=== PATIENT | female | born 1960 | race Caucasian/White ===

== ENCOUNTER → 2017-05-15 | Outpatient (CLI) | payer BC ==
[~2017-05-15] MED LIST: ASPIRIN81 M1 PO; LETROZOLE2.5 M2 PO; MULTIPLE VITAMI1 T25 PO; TAMOXIFEN CITRA20 MG PO
== END | disposition home or self-care (01) ==
LOC: MAMMO 01:43
DX: C50.412 Malignant neoplasm of upper-outer quadrant of left female breast (principal); N63.11 Unspecified lump in the right breast, upper outer quadrant

== ENCOUNTER → 2018-03-11 | Outpatient (CLI) | payer BC ==
[2018-03-11 07:48] LABS: FREE T4 0.75 ng/dl (0.76-1.46)
[2018-03-11 07:54] LABS: THYROID STIM HORMONE (HS) 2.35 uIU/ml (0.358-4.75)
== END | disposition home or self-care (01) ==
LOC: LAB 02:12 → RAD 11:00
PROVIDERS: Internal Medicine
DX: Z00.01 Encounter for general adult medical examination with abnormal findings (principal); Z13.820 Encounter for screening for osteoporosis; M85.80 Other specified disorders of bone density and structure, unspecified site; E78.2 Mixed hyperlipidemia; E55.9 Vitamin D deficiency, unspecified; E03.9 Hypothyroidism, unspecified; Z78.0 Asymptomatic menopausal state

== ENCOUNTER → 2018-05-14 | Outpatient (CLI) | payer BC | END | disposition home or self-care (01) | LOC: MAMMO 02:59 | DX: R21 Rash and other nonspecific skin eruption (principal); Z85.3 Personal history of malignant neoplasm of breast ==

== ENCOUNTER → 2020-04-08 | Outpatient (CLI) | payer BC ==
[2020-04-08 07:44] LABS: BASO # 0.1 10*3/uL (0.0-0.1); BASO % 1.1 % (0.0-1.0); EOS # 0.2 10*3/uL (0.0-0.4); EOS % 3.2 % (1.0-4.0); LYMPH # 1.5 10*3/uL (1.3-4.4); MEAN CELL VOLUME 83.7 fl (81.0-99.0); MEAN CORPUSCULAR HGB 26.5 pg (27.0-31.0); MEAN CORPUSCULAR HGB CONC 31.6 g/dl (33.0-37.0); MEAN PLATELET VOLUME 10.2 fl (9.6-12.3); MONO # 0.3 10*3/uL (0.1-1.0); MONO % 7.3 % (3.0-9.0); NEUT # 2.6 10*3/uL (2.3-7.9); NEUT % 55.2 % (47.0-73.0); PLATELET COUNT AUTOMATED 292 10*3/uL (130-400); RED BLOOD COUNT 5.14 10*6/uL (4.10-5.10); RED CELL DISTRI WIDTH 12.6 % (0-14.5); WHITE BLOOD COUNT 4.6 10*3/uL (4.8-10.8)
[2020-04-08 08:09] LABS: ALBUMIN 3.7 gm/dl (3.1-4.5); ALKALINE PHOSPHATASE 100 U/L (45-117); BUN 14 mg/dl (7-24); CHLORIDE 110 mmol/L (98-107); CHOLESTEROL 160 mg/dL (<200); CREATININE 0.88 mg/dL (0.55-1.02); HDL CHOLESTEROL 93 mg/dl (40-60); LDL CHOLESTEROL 55 mg/dL (9-159); POTASSIUM 4.4 mmol/L (3.5-5.1); SGOT/AST 13 IU/L (3-35); SGPT/ALT 20 U/L (12-78); SODIUM 144 mmol/L (136-145); T3 UPTAKE 33 % (31-39); THYROXINE (T4) TOTAL 6.8 ug/dl (4.8-13.9); TOTAL PROTEIN 7.5 gm/dL (6.4-8.2); TRIGLYCERIDES 62 mg/dl (<150); VLDL CHOLESTEROL 12 mg/dL (6-40)
== END | disposition home or self-care (01) ==
LOC: LAB 06:46
PROVIDERS: ATTEND Internal Medicine
DX: I10 Essential (primary) hypertension (principal); Z85.3 Personal history of malignant neoplasm of breast

== ENCOUNTER → 2021-06-23 | Outpatient (CLI) | payer BC | END | disposition home or self-care (01) | LOC: MAMMO 00:14 | PROVIDERS: ATTEND Internal Medicine | DX: Z12.31 Encounter for screening mammogram for malignant neoplasm of breast (principal); N64.89 Other specified disorders of breast ==

== ENCOUNTER → 2021-08-25 | Outpatient (CLI) | payer BC ==
[2021-08-25 09:07] LABS: BASO % 0.8 % (0.0-1.0); EOS # 0.2 10*3/uL (0.0-0.4); EOS % 3.6 % (1.0-4.0); HEMATOCRIT 42.7 % (37.0-47.0); LYMPH # 1.8 10*3/uL (1.3-4.4); LYMPH % 33.6 % (27.0-41.0); MEAN CORPUSCULAR HGB 26.4 pg (27.0-31.0); MEAN CORPUSCULAR HGB CONC 32.6 g/dl (33.0-37.0); MEAN PLATELET VOLUME 10.1 fl (9.6-12.3); MONO # 0.4 10*3/uL (0.1-1.0); MONO % 7.7 % (3.0-9.0); NEUT # 2.8 10*3/uL (2.3-7.9); NEUT % 54.1 % (47.0-73.0); PLATELET COUNT AUTOMATED 300 10*3/uL (130-400); RED BLOOD COUNT 5.27 10*6/uL (4.10-5.10); RED CELL DISTRI WIDTH 12.7 % (0-14.5); WHITE BLOOD COUNT 5.2 10*3/uL (4.8-10.8)
[2021-08-25 09:22] LABS: BUN 11 mg/dl (7-24); CHLORIDE 111 mmol/L (98-107); CHOLESTEROL 186 mg/dL (<200); CREATININE 0.78 mg/dL (0.55-1.02); SGOT/AST 11 IU/L (3-35); SGPT/ALT 24 U/L (12-78); SODIUM 140 mmol/L (136-145); TRIGLYCERIDES 121 mg/dl (<150)
[2021-08-25 09:30] LABS: ALKALINE PHOSPHATASE 89 U/L (45-117); FREE T4 0.84 ng/dl (0.76-1.46); LDL CHOLESTEROL 86 mg/dL (9-159); TOTAL PROTEIN 7.6 gm/dL (6.4-8.2)
[2021-08-25 10:19] LABS: VITAMIN D, 25-HYDROXY 60.3 ng/mL (30-100)
== END | disposition home or self-care (01) ==
LOC: LAB 02:21
PROVIDERS: ATTEND Internal Medicine
DX: Z13.21 Encounter for screening for nutritional disorder (principal); Z13.220 Encounter for screening for lipoid disorders; Z00.00 Encounter for general adult medical examination without abnormal findings; Z85.3 Personal history of malignant neoplasm of breast; I10 Essential (primary) hypertension; E55.9 Vitamin D deficiency, unspecified; Z13.1 Encounter for screening for diabetes mellitus

== ENCOUNTER → 2021-10-27 | Outpatient (CLI) | payer BC | END | disposition home or self-care (01) | LOC: RAD 10-20 14:00 | PROVIDERS: ATTEND Internal Medicine | DX: M85.88 Other specified disorders of bone density and structure, other site (principal); N95.9 Unspecified menopausal and perimenopausal disorder ==

== ENCOUNTER → 2022-08-22 | Outpatient (CLI) | payer BC | END | disposition home or self-care (01) | LOC: MAMMO 00:05 | PROVIDERS: ATTEND Internal Medicine | DX: Z12.31 Encounter for screening mammogram for malignant neoplasm of breast (principal); N63.10 Unspecified lump in the right breast, unspecified quadrant ==

== ENCOUNTER → 2023-09-06 | Outpatient (CLI) | payer BC ==
[2023-09-06 07:12] LABS: BASO % 0.7 % (0.0-1.0); EOS # 0.2 10*3/uL (0.0-0.4); EOS % 3.6 % (1.0-4.0); HEMATOCRIT 44.4 % (37.0-47.0); LYMPH % 34.2 % (27.0-41.0); MEAN CELL VOLUME 82.4 fl (81.0-99.0); MEAN CORPUSCULAR HGB 26.7 pg (27.0-31.0); MEAN CORPUSCULAR HGB CONC 32.4 g/dl (33.0-37.0); MEAN PLATELET VOLUME 9.8 fl (9.6-12.3); MONO # 0.4 10*3/uL (0.1-1.0); MONO % 7.1 % (3.0-9.0); NEUT # 3.1 10*3/uL (2.3-7.9); NEUT % 54.2 % (47.0-73.0); PLATELET COUNT AUTOMATED 298 10*3/uL (130-400); RED BLOOD COUNT 5.39 10*6/uL (4.10-5.10); RED CELL DISTRI WIDTH 12.5 % (0-14.5); WHITE BLOOD COUNT 5.8 10*3/uL (4.8-10.8)
[2023-09-06 07:56] LABS: ALKALINE PHOSPHATASE 69 U/L (46-116); BUN 14 mg/dl (9-23); CHLORIDE 108 mmol/L (98-107); CHOLESTEROL 174 mg/dL (<200); FREE T4 1.03 ng/dl (0.89-1.76); LDL CHOLESTEROL 77 mg/dL (9-159); POTASSIUM 4.2 mmol/L (3.4-5.1); SGPT/ALT 12 U/L (5-49); TOTAL PROTEIN 7.5 gm/dL (6.0-8.0); TRIGLYCERIDES 127 mg/dl (<150)
[2023-09-06 09:27] LABS: VITAMIN D, 25-HYDROXY 55.9 ng/mL (30-100)
== END | disposition home or self-care (01) ==
LOC: LAB 02:04
PROVIDERS: ATTEND Internal Medicine
DX: Z13.220 Encounter for screening for lipoid disorders (principal); Z13.228 Encounter for screening for other metabolic disorders; Z13.1 Encounter for screening for diabetes mellitus; Z13.21 Encounter for screening for nutritional disorder; Z13.6 Encounter for screening for cardiovascular disorders; Z13.89 Encounter for screening for other disorder; R53.81 Other malaise; R79.89 Other specified abnormal findings of blood chemistry; E55.9 Vitamin D deficiency, unspecified; E03.9 Hypothyroidism, unspecified; D52.9 Folate deficiency anemia, unspecified; Z13.0 Encounter for screening for diseases of the blood and blood-forming organs and certain disorders involving the immune mechanism

== ENCOUNTER → 2023-09-20 | Outpatient (CLI) | payer BC | END | disposition home or self-care (01) | LOC: MAMMO 01:36 | PROVIDERS: ATTEND Internal Medicine | DX: Z12.31 Encounter for screening mammogram for malignant neoplasm of breast (principal); R79.89 Other specified abnormal findings of blood chemistry ==

== ENCOUNTER → 2024-09-03 | Outpatient (CLI) | payer BC ==
[2024-09-03 07:27] LABS: BASO # 0.1 10*3/uL (0.0-0.1); BASO % 0.9 % (0.0-1.0); EOS # 0.3 10*3/uL (0.0-0.4); EOS % 4.4 % (1.0-4.0); HEMATOCRIT 41.7 % (37.0-47.0); MEAN CELL VOLUME 82.7 fl (81.0-99.0); MEAN CORPUSCULAR HGB 26.4 pg (27.0-31.0); MEAN CORPUSCULAR HGB CONC 31.9 g/dl (33.0-37.0); MEAN PLATELET VOLUME 9.9 fl (9.6-12.3); MONO # 0.4 10*3/uL (0.1-1.0); MONO % 6.4 % (3.0-9.0); NEUT # 3.2 10*3/uL (2.3-7.9); NEUT % 55.2 % (47.0-73.0); PLATELET COUNT AUTOMATED 319 10*3/uL (130-400); RED BLOOD COUNT 5.04 10*6/uL (4.10-5.10); RED CELL DISTRI WIDTH 12.6 % (0-14.5); WHITE BLOOD COUNT 5.7 10*3/uL (4.8-10.8)
[2024-09-03 08:00] LABS: ALKALINE PHOSPHATASE 75 U/L (46-116); BUN 14 mg/dl (9-23); CHLORIDE 107 mmol/L (98-107); CHOLESTEROL 166 mg/dL (<200); FREE T4 1.28 ng/dl (0.89-1.76); LDL CHOLESTEROL 78 mg/dL (9-159); POTASSIUM 4.1 mmol/L (3.4-5.1); SGPT/ALT 14 U/L (5-49); TOTAL PROTEIN 7.2 gm/dL (6.0-8.0); TRIGLYCERIDES 67 mg/dl (<150)
[2024-09-03 09:13] LABS: VITAMIN D, 25-HYDROXY 62.4 ng/mL (30-100)
== END | disposition home or self-care (01) ==
LOC: LAB 02:34
PROVIDERS: ATTEND Internal Medicine
DX: I10 Essential (primary) hypertension (principal); R53.83 Other fatigue; E53.9 Vitamin B deficiency, unspecified; E55.9 Vitamin D deficiency, unspecified

== ENCOUNTER → 2024-09-29 | Outpatient (CLI) | payer BC | END | disposition home or self-care (01) | LOC: MAMMO 01:13 | PROVIDERS: ATTEND Internal Medicine | DX: Z12.31 Encounter for screening mammogram for malignant neoplasm of breast (principal); Z13.820 Encounter for screening for osteoporosis; Z78.0 Asymptomatic menopausal state ==